=== PATIENT | female | born 1995 | race Caucasian/White ===

== ENCOUNTER 2020-02-26 21:37 | Emergency (ER) | payer MEDICAID ==
--- NOTE | 2020-02-26 22:25 | ER Document Report ---
ED Medical Screen (RME) - General Chief Complaint: Nausea/Vomiting Stated Complaint: TOOTH/EAR/JAW PAIN Time Seen by Provider: 02/26/20 22:12 Mode of Arrival: Ambulatory Information source: Patient Notes: 24-year-old female presents to ED for complaint of dental pain with vomiting and fever x3 days. She states she is vomited at least 7 times today the last one was about 830 today. She states she has a history of IBS and GERD. Last menstrual period was February 04. I did recheck her vital signs. She is satting 100% pulse is 84 temp is 98.5 respirations are 24. I did speak to the charge nurse and she said we needed to put her to the COVID side. I will order her some blood urine IV fluids and Zofran. I have greeted and performed a rapid initial assessment of this patient. A c omprehensive ED assessment and evaluation of the patient, analysis of test results and completion of medical decision making process will be conducted by an additional ED providers. Physical Exam - Vital signs Vitals: Temp Pulse Resp BP Pulse Ox 98.4 F 80 32 H 134/85 H 96 02/26/20 21:54 02/26/20 21:54 02/26/20 21:54 02/26/20 21:54 02/26/20 21:54 Course - Vital Signs Vital signs: Temp Pulse Resp BP Pulse Ox 98.4 F 80 32 H 134/85 H 96 02/26/20 21:54 02/26/20 21:54 02/26/20 21:54 02/26/20 21:54 02/26/20 21:54
[2020-02-26] MEDS ORDERED: NORMAL SALINE 1000 ML 1,000 ML IV ONE (22:26)
[2020-02-26] MEDS ORDERED: ONDANSETRON HCL INJ/PF 4 MG/2 ML SDV IV ONE (22:26)
[2020-02-26 23:40] LABS: ABSOLUTE BASOPHILS # (AUTO) 0.1 10^3/uL (0.0-0.2); ABSOLUTE EOSINOPHILS # (AUTO) 0.1 10^3/uL (0.0-0.6); ABSOLUTE MONOCYTES (AUTO) 0.6 10^3/uL (0.1-1.4); ABSOLUTE NEUT (AUTO) 4.7 10^3/uL (1.7-8.2); BASOPHILS % (AUTO) 0.8 % (0-2); EOSINOPHILS % (AUTO) 1.7 % (0-6); HEMATOCRIT 44.1 % (36.0-47.0); HEMOGLOBIN 15.6 g/dL (12.0-15.5); MEAN CORPUSCULAR HEMOGLOBIN 29.8 pg (27.0-33.4); MEAN CORPUSCULAR HGB CONC 35.3 g/dL (32.0-36.0); MEAN CORPUSCULAR VOLUME 84 fl (80-97); MONOCYTES % (AUTO) 7.8 % (3-13); PLATELET COUNT 240 10^3/uL (150-450); RED BLOOD COUNT 5.24 10^6/uL (3.72-5.28); RED CELL DISTRIBUTION WIDTH 13.6 % (11.5-14.0); SEGMENTED NEUTROPHILS % (AUTO) 62.7 % (42-78); TOTAL CELLS COUNTED % (AUTO) 100 %; WHITE BLOOD COUNT 7.4 10^3/uL (4.0-10.5)
[2020-02-26 23:58] LABS: APPEARANCE,URINE SLIGHTLY-CLOUDY; BILIRUBIN,URINE NEGATIVE (NEGATIVE); COLOR,URINE YELLOW; GLUCOSE, URINE NEGATIVE (NEGATIVE); KETONES,URINE NEGATIVE (NEGATIVE); LEUKOCYTE ESTERASE,URINE NEGATIVE (NEGATIVE); NITRITE,URINE NEGATIVE (NEGATIVE); PROTEIN,URINE NEGATIVE (NEGATIVE); UROBILINOGEN,URINE NEGATIVE mg/dL (<2.0)
[2020-02-27 00:02] LABS: ALBUMIN 4.2 g/dL (3.5-5.0); ALKALINE PHOSPHATASE 79 U/L (38-126); ANION GAP 8 (5-19); ASPARTATE AMINO TRANSFERASE 25 U/L (14-36); BILIRUBIN,DIRECT 0.3 mg/dL (0.0-0.4); BILIRUBIN,TOTAL 0.6 mg/dL (0.2-1.3); BLOOD UREA NITROGEN 2 mg/dL (7-20); CALCIUM 9.4 mg/dL (8.4-10.2); CARBON DIOXIDE 26 mmol/L (22-30); CHLORIDE 107 mmol/L (98-107); GLUCOSE 79 mg/dL (75-110); POTASSIUM 4.1 mmol/L (3.6-5.0); TOTAL PROTEIN 7.3 g/dL (6.3-8.2)
[2020-02-27] MEDS ORDERED: OXYCODONE-ACETAMINOPHEN 5-325 MG TABLET PO ONE (01:31)
[2020-02-27] MEDS ORDERED: IBUPROFEN 600 MG TABLET PO ONE (01:31)
[2020-02-27] MEDS ORDERED: METOCLOPRAMIDE HCL 10 MG TABLET PO ONE (01:31)
[2020-02-27] MEDS ORDERED: CEPHALEXIN 500 MG CAPSULE PO ONE (01:31)
--- NOTE | 2020-02-27 01:37 | ER Document Report ---
ED General - General Chief Complaint: Fever Stated Complaint: TOOTH/EAR/JAW PAIN Time Seen by Provider: 02/26/20 22:12 Mode of Arrival: Ambulatory Information source: Patient Notes: 24-year-old female with left lower jaw pain. Patient reports that she chipped the tooth couple weeks ago and has been having problems with it ever since. In the past couple days is gotten significantly worse. Patient states she is throwing up every day. Reported fever although none here. - Related Data Allergies/Adverse Reactions: Sulfa (Sulfonamide Antibiotics) Allergy (Verified 02/27/20 01:32) Past Medical History - General Information source: Patient - Social History Smoking Status: Never Smoker Chew tobacco use (# tins/day): No Frequency of alcohol use: Occasional Drug Abuse: None Family History: Reviewed & Not Pertinent Patient has homicidal ideation: No Review of Systems - Review of Systems Notes: Constitutional: No fevers. No chills. Uncomfortable EENT: No eye redness. No eye pain. No ear pain. No sore throat. Positive dental pain Cardiovascular: No chest pain. No palpitations. Respiratory: No cough. No shortness of breath. No respiratory distress. Gastrointestinal: No abdominal pain. Positive for nausea and vomiting Genitourinary: Atraumatic. No lesions. No pain. No discharge. Musculoskeletal: Atraumatic. No swelling. No deformities. Skin: No rash or lesions. Lymphatic: No swollen lymph nodes. Neurologic: No headache. No syncope. Psychiatric: No suicidal or homicidal ideation. Physical Exam - Vital signs Vitals: Temp Pulse Resp BP Pulse Ox 98.4 F 80 32 H 134/85 H 96 02/26/20 21:54 02/26/20 21:54 02/26/20 21:54 02/26/20 21:54 02/26/20 21:54 - Notes Notes: General: Well-developed, well-nourished. In no acute distress. Non-toxic appearing. Tearful, looks uncomfortable Cardiac: Well-perfused. Regular rate and rhythm. No murmurs, rubs, or gallops. Pulmonary: No respiratory distress. No cyanosis. Bilateral lung fiels are clear to auscultation. Abdominal: Non-distended. Non-rigid. Bowels sounds are present in all four quadrants. No guarding or rebound. HEENT: Head is atraumatic. Conjunctivae not reddened. No tearing. PERRL. EOMI. Orbits atraumatic. No periorbital swelling or erythema. Oropharynx is without erythema, swelling, or exudates. There appears to be a small chip out of the posterior corner of the left lower wisdom tooth. No abscess seen. Trismus. No drooling. No submandibular or sublingual swelling. No dysphonia dyspnea or dysphagia. Neck: Supple. No adenopathy. No meningismus. Dermatologic: Warm with good turgor. No rash. Atraumatic. Chest: Atraumatic. No chest wall tenderness to palpation. Musculoskeletal: Moves all extremities well. No range of motion deficits. no muscular or joint tenderness. No paraspinal muscle tenderness. no midline spinal tenderness or step-off. Genitourinary: Examination deferred Neurologic: No gross neurologic deficits. Psychiatric: Normal mood. Course - Re-evaluation Re-evalutation: 02/27/20 01:36 At the time of exam, the patient has had a full baseline lab work-up. She reports that she has not eaten or drank anything in 3 days however her labs are normal. Her mucous membranes are nice and moist. She is crying real tears. We will give her some Reglan here as well as some Keflex and some pain medicine. We will discharge her home with a pain pack and prescription for Keflex and a Zofran pack - Vital Signs Vital signs: Temp Pulse Resp BP Pulse Ox 98.4 F 80 32 H 134/85 H 96 02/26/20 21:54 02/26/20 21:54 02/26/20 21:54 02/26/20 21:54 02/26/20 21:54 - Laboratory Result Diagrams: 02/26/20 23:33 02/26/20 23:33 Laboratory results interpreted by mn: 02/26/20 02/26/20 02/26/20 21:56 23:33 23:33 Hgb 15.6 H BUN 2 L Urine Blood LARGE H Discharge - Discharge Clinical Impression: Tooth pain Nausea and vomiting Qualifiers: Vomiting type: unspecified Vomiting Intractability: non-intractable Qualified Code(s): R11.2 - Nausea with vomiting, unspecified Condition: Good Disposition: HOME, SELF-CARE Instructions: Antinausea Medication ([facility]), [facility], Penicillin V K ([facility]), Toothache ([facility]) Additional Instructions: Follow-up with the [facility] to have your tooth check Prescriptions: Penicillin V Potassium [Penicillin Vk 500 mg Tablet] 500 mg PO QID #28 tablet
[2020-02-27] MEDS ORDERED: ONDANSETRON ODT 4 MG TAB (6 TAB/ER DISP) PO PRN (01:42)
[2020-02-27] MEDS ORDERED: HYDROCODONE/ACETAMINOPHEN 5-325 MG (6 TAB/ER DISP) PO PRN (01:43)
[2020-02-27 02:12] VITALS: BP 138/81
== END 2020-02-27 02:00 | disposition home or self-care (01) ==
LOC: ER 21:37
DX: K08.9 Disorder of teeth and supporting structures, unspecified (principal); R68.84 Jaw pain; R11.2 Nausea with vomiting, unspecified; Z88.2 Allergy status to sulfonamides
CPT/HCPCS: 99283; 36415; 85025; 81025; 80053; 81001; J3490 ×2; 87086